=== PATIENT | male | born 1940 | race Caucasian/White ===

== ENCOUNTER → 2016-07-12 | Outpatient (CLI) | payer BC ==
[~2016-07-12] MED LIST: ACET-1138 PO; ALBU1AER9 INH; ASPEC325 PO; AZIT500T3 PO; ETHA1TAB8 PO; HYG/25 PO; IRBE-37 PO; PARO1TAB27 PO; RIFA150C15 PO; RXC5 PO
== END | disposition home or self-care (01) ==
LOC: C.LABPVFM 13:18
PROVIDERS: ATTEND Internal Medicine Critical Care Medicine
DX: R91.8 Other nonspecific abnormal finding of lung field (principal); A31.0 Pulmonary mycobacterial infection; Z79.899 Other long term (current) drug therapy

== ENCOUNTER → 2016-07-26 | Outpatient (CLI) | payer BC ==
[2016-07-26 17:13] LABS: ALT/SGPT 18 U/L (12-78); BLOOD UREA NITROGEN 19 mg/dl (7-18); BUN/CREATININE RATIO 16.1 (10-20); CARBON DIOXIDE 27 mmol/L (21-32); CHLORIDE 102 mmol/L (98-107); CHOLESTEROL 167 mg/dl (0-200); GLUCOSE 94 mg/dl (70-99); POTASSIUM 4.4 mmol/L (3.5-5.1); SODIUM 139 mmol/L (136-145)
[2016-07-26 17:23] LABS: ALB/GLOB RATIO 1.3 (0.9-2); ALKALINE PHOSPHATASE 98 U/L (45-117); AST/SGOT 13 U/L (15-37); CHOLESTEROL/HDL RATIO 2.3; HDL CHOLESTEROL 72 mg/dl; LDL CHOLESTEROL CALCULATED 70 mg/dl; TRIGLYCERIDES 124 mg/dl (0-150); VERY LOW DENSITY LIPOPROT CALC 25 mg/dl
[2016-07-27 07:27] LABS: ESTIMATED AVERAGE GLUCOSE 103 mg/dl; HA1C FLAG Normal (Normal)
--- NOTE | 2016-08-01 13:12 | CODING QUERY MEDICAL NECESSITY ---
SUPPORTING DIAGNOSIS NEEDED A supporting diagnosis is required for the test/procedure performed on this patient in order for us to be reimbursed by the patient's insurance. Please provide a supporting diagnosis for the following test/procedure listed below next to the test name along with your signature. *If there is no additional diagnosis for this patient that would support the following test/procedure please document that below next to the test/procedure. Test(s)/Procedure(s) that require a supporting diagnosis: * GLYCATED HEMOGLOBIN DIAGNOSIS: * DOS: 07/26/16 Provider Signature: Date: Thank you Citlaly [facility] Once completed, please kindly fax back to [phone] For questions please call [phone]
== END | disposition home or self-care (01) ==
LOC: C.LABPVFM 11:20
PROVIDERS: ATTEND Nurse Practitioner Family
DX: Z12.5 Encounter for screening for malignant neoplasm of prostate (principal); N40.1 Benign prostatic hyperplasia with lower urinary tract symptoms; J45.909 Unspecified asthma, uncomplicated; Z13.1 Encounter for screening for diabetes mellitus; F41.8 Other specified anxiety disorders; I10 Essential (primary) hypertension; Z13.220 Encounter for screening for lipoid disorders

== ENCOUNTER → 2016-09-26 | Outpatient (CLI) | payer BC ==
--- NOTE | 2016-09-26 16:17 | DIAGNOSTIC IMAGING REPORT ---
LEFT WRIST MIN 3 VIEWS ROUTINE CLINICAL HISTORY: Chronic left wrist pain COMPARISON: None. DISCUSSION: There are advanced arthritic changes present. There is fragmentation of the proximal carpal row. There is marked narrowing of the radial carpal joint. There is subchondral sclerotic change. There is a carpal instability pattern. There is dorsal soft tissue swelling. Several loose bodies are visualized. No acute fractures are evident. IMPRESSION: Advanced arthritic changes with marked joint space narrowing, subchondral sclerosis, carpal instability pattern, and bony fragmentation. Electronically signed by: Bill Greenberg M.D. 09/26/2016 4:15 PM Dictated Date/Time: 09/26/2016 4:14 PM
--- NOTE | 2016-09-26 16:17 | DIAGNOSTIC IMAGING REPORT ---
RIGHT WRIST MIN 3 VIEWS ROUTINE CLINICAL HISTORY: Chronic wrist pain. Polyarthritis. COMPARISON: Right wrist radiographs May 05, 2015. FINDINGS: There is near complete loss of the radiocarpal joint space. Stent osteophytosis is noted. Widening of the scapholunate interval is unchanged. There is minimal chondrocalcinosis within the TFCC. There is severe arthritis of the right first carpometacarpal joint. Several old ossific densities are noted overlying the dorsal aspect of the right wrist. These are unchanged exam of May 05, 2015. There is no acute fracture. No erosion is identified. IMPRESSION: 1. No significant change in severe arthritis of the right wrist when compared to exam of May 05, 2015, as described above. 2. No acute fracture. Electronically signed by: Vicente Ware M.D. 09/26/2016 4:15 PM Dictated Date/Time: 09/26/2016 4:13 PM
--- NOTE | 2016-09-26 16:18 | DIAGNOSTIC IMAGING REPORT ---
LEFT HAND MIN 3 VIEWS ROUTINE CLINICAL HISTORY: Left hand pain COMPARISON: Left wrist performed the same day DISCUSSION: There are advanced arthritic changes present within the wrist. Degenerative changes are also present within the hand but these are more mild. Changes are most severe at the level of the proximal to phalangeal joint of the index finger. There are no acute fractures. There are no erosive or destructive changes. IMPRESSION: Mild to moderate arthritic changes in the hand. Advanced arthritic changes within the wrist. No acute fractures. Electronically signed by: Bill Greenberg M.D. 09/26/2016 4:17 PM Dictated Date/Time: 09/26/2016 4:15 PM
--- NOTE | 2016-09-26 16:19 | DIAGNOSTIC IMAGING REPORT ---
RIGHT HAND MIN 3 VIEWS ROUTINE CLINICAL HISTORY: Right hand pain COMPARISON: Right wrist study performed the same day. DISCUSSION: There are advanced osteoarthritic changes involving the wrist. There are moderate erosive osteoarthritic changes involving the hand most severe at the level the proximal to phalangeal joint and extending, distal to phalangeal joints of the middle and little finger. No acute fractures are visualized. 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 Electronically signed by: Bill Greenberg M.D. 09/26/2016 4:18 PM Dictated Date/Time: 09/26/2016 4:17 PM
[2016-09-26 17:52] LABS: RHEUMATOID FACTOR < 10.0 U/mL (0-15); TOTAL IRON BINDING CAPACITY 295 mcg/dl (250-450); URIC ACID 7.2 mg/dl (2.6-7.2)
[2016-09-30 00:32] LABS: CYCLIC CITRULLINATED PEPT IGG <16 UNITS (<20); PARVOVIRUS IgG INDEX 7.7 (<0.9); PARVOVIRUS IgM INDEX 0.1 (<0.9)
== END | disposition home or self-care (01) ==
LOC: C.RAD1850 15:47
PROVIDERS: ATTEND Internal Medicine Rheumatology
DX: M13.0 Polyarthritis, unspecified (principal); M25.539 Pain in unspecified wrist

== ENCOUNTER → 2016-10-20 | Outpatient (CLI) | payer BC ==
[2016-10-20 12:48] LABS: ALKALINE PHOSPHATASE 82 U/L (45-117); ALT/SGPT 23 U/L (12-78); AST/SGOT 13 U/L (15-37)
== END | disposition home or self-care (01) ==
LOC: C.LABPVFM 10:17
PROVIDERS: ATTEND Internal Medicine Critical Care Medicine
DX: R91.8 Other nonspecific abnormal finding of lung field (principal); Z79.899 Other long term (current) drug therapy

== ENCOUNTER → 2016-11-16 | Outpatient (CLI) | payer BC ==
--- NOTE | 2016-11-16 14:20 | DIAGNOSTIC IMAGING REPORT ---
LEFT PELVIS/UNILATERAL HIP 2-3VIEWS CLINICAL HISTORY: LEG PAIN pain COMPARISON: None. DISCUSSION: Status post bilateral hip arthroplasties. Minimal degenerative change likely joints as well as low lumbar spine. No acute bony abnormality. No evidence for acetabular protrusion. There is no evidence for soft tissue swelling. IMPRESSION: No acute process. Total hip arthroplasties in good position. Electronically signed by: Reji Medina M.D. 11/16/2016 2:18 PM Dictated Date/Time: 11/16/2016 2:17 PM
--- NOTE | 2016-11-16 14:34 | DIAGNOSTIC IMAGING REPORT ---
LEFT FEMUR 2 VIEWS ROUTINE CLINICAL HISTORY: LEG PAIN pain COMPARISON: None. DISCUSSION: Patient is status post total hip arthroplasty. Good contact between prosthetic and underlying bone. No evidence for acetabular protrusion. There is no evidence for soft tissue swelling. IMPRESSION: Anatomic alignment status post total left hip arthroplasty Electronically signed by: Reji Medina M.D. 11/16/2016 2:33 PM Dictated Date/Time: 11/16/2016 2:33 PM
== END | disposition home or self-care (01) ==
LOC: C.RADPV 13:50
PROVIDERS: ATTEND Family Medicine
DX: M79.605 Pain in left leg (principal)

== ENCOUNTER 2017-07-05 11:45 | Emergency (ER) | payer BC ==
[~2017-07-05] VITALS: Ht 188 cm; Wt 77.4 kg
[2017-07-05 11:47] VITALS: TEMP 36.2; Ht 188 cm; Wt 77.4 kg
[2017-07-05] MEDS ORDERED: ASPIRIN 324 MG CHEW PO STA (12:29)
--- NOTE | 2017-07-05 12:32 | EMERGENCY ROOM VISIT NOTE ---
History Report prepared by Rona: Ken Edmondson Under the Supervision of: Dr. Bulmaro Suarez M.D. First contact with patient: 12:04 Chief Complaint: CHEST PAIN Stated Complaint: ANGINA,CHEST PAIN History of Present Illness The patient is a 77 year old male who presents to the Emergency Room with complaints of a persistent dull ache-like left-sided chest pain that began five days ago. He rates his pain a 2/10 in severity. He has a past medical history of a recent unilateral hip replacement on June 09, 2017. He also has a history of MAC. The patient states that nothing exacerbates his pain. He notes that he took an Aspirin last night which mildly helped his symptoms. He did not take any Aspirin today. He denies experiencing any fevers, cough, shortness of breath, nausea, vomiting, diarrhea, numbness, or any radiation of his pain. He is not currently on any blood thinners. He denies any recent long sedentary travel. He has a former history of cigarette smoking, but has not smoked in over 40+ years. Source of History: patient Onset: five days ago Position: chest (left) Symptom Intensity: 2/10 Quality: ache, dull Timing: constant Modifying Factors (Relieving): other (ASA) Associated Symptoms: No fevers, No cough, No SOB, No nausea, No vomiting, No diarrhea, No numbness Review of Systems See HPI for pertinent positives and negatives. A total of ten systems were reviewed and were otherwise negative. 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 Surgical Problems: (1) Hip replacement planned Family History No significant family history Social History Smoking Status: Former Smoker Smokeless Tobacco Use: No Drug Use: none Marital Status: single Housing Status: lives alone Occupation Status: retired Current/Historical Medications Scheduled Aspirin (Aspirin), 325 MG PO BID Chlorthalidone (Hygroton), 25 MG PO QAM Fluticasone Prop/Salmeterol (Advair Diskus 100/50 60 Dose), 2 PUFFS INH BID Irbesartan (Avapro), 150 MG PO QPM Paroxetine (Paxil), 30 MG PO QAM Allergies Coded Allergies: No Known Allergies (Verified , 06/09/16) Physical Exam Vital Signs Date Time Temp Pulse Resp B/P (MAP) Pulse Ox O2 Delivery O2 Flow Rate FiO2 07/05/17 15:11 59 17 124/74 96 Room Air 07/05/17 14:00 57 20 125/79 98 Room Air 07/05/17 13:29 58 18 136/91 99 Room Air 07/05/17 12:41 Room Air 07/05/17 12:30 62 20 115/71 98 Room Air 07/05/17 12:01 65 07/05/17 12:00 66 20 117/71 98 Room Air 07/05/17 11:47 36.2 80 16 121/72 98 Room Air Physical Exam GENERAL: Awake, alert, well-appearing, in no distress HENT: Normocephalic, atraumatic. Oropharynx unremarkable. EYES: Normal conjunctiva. Sclera non-icteric. NECK: Supple. No nuchal rigidity. FROM. No JVD. RESPIRATORY: Clear to auscultation. No wheezes, rales, or rhonchi present. CARDIAC: Regular rate, normal rhythm. Extremities warm and well perfused. Equal palpable radial pulses to the bilateral upper extremities. Equal palpable DP pulses bilaterally to the lower extremities. ABDOMEN: Soft, non-distended. No tenderness to palpation. No rebound or guarding. No masses. RECTAL: Deferred. MUSCULOSKELETAL: Chest examination reveals no tenderness. The back is symmetrical on inspection without obvious abnormality. There is no CVA tenderness to palpation. No joint edema. LOWER EXTREMITIES: Calves are equal size bilaterally and non-tender. No edema. No discoloration. NEURO: Normal sensorium. No sensory or motor deficits noted. No facial droop. No pronator drift. No dysarthria. SKIN: No rash or jaundice noted. Medical Decision & Procedures ER Provider Diagnostic Interpretation: Radiology results as stated below per my review and radiologist interpretation: (CHEST FOR PE) ANGIO WITH CT DOSE: 239.49 mGy.cm HISTORY: Chest pain dyspnea TECHNIQUE: Multiaxial CT images of the chest were performed following the intravenous administration of contrast to evaluate the pulmonary arteries. Maximal intensity projection images were also obtained. A dose lowering technique was utilized adhering to the principles of ALARA. COMPARISON STUDY: 10/06/2015 FINDINGS: Vascular is negative for aneurysm or dissection. Pulmonary arterial vasculature enhances appropriately. Chronic bibasilar interstitial fibrotic change is generally unaltered. Nodular pathology as well as pleural and parenchymal changes right pulmonary apex and right. Mediastinal region are unaltered. Pulmonary vasculature again enhances appropriately. IMPRESSION: No evidence of pulmonary embolus. Stable emphysematous, fibrotic, and nodular changes throughout the hemithoraces as has been described previously. The above report was generated using voice recognition software. It may contain grammatical, syntax or spelling errors. Electronically signed by: Reji Medina M.D. 07/05/2017 1:27 PM Dictated Date/Time: 07/05/2017 1:19 PM Laboratory Results 07/05/17 12:32 Red Blood Count 4.69, Mean Corpuscular Volume 90.6, Mean Corpuscular Hemoglobin 31.1, Mean Corpuscular Hemoglobin Concent 34.4, Mean Platelet Volume 9.0, Neutrophils (%) (Auto) 75.8, Lymphocytes (%) (Auto) 13.1, Monocytes (%) (Auto) 9.6, Eosinophils (%) (Auto) 1.1, Basophils (%) (Auto) 0.2, Neutrophils # (Auto) 4.29, Lymphocytes # (Auto) 0.74, Monocytes # (Auto) 0.54, Eosinophils # (Auto) 0.06, Basophils # (Auto) 0.01 07/05/17 12:32 Test 07/05/17 12:32 White Blood Count 5.65 K/uL (4.8-10.8) Red Blood Count 4.69 M/uL (4.7-6.1) Hemoglobin 14.6 g/dL (14.0-18.0) Hematocrit 42.5 % (42-52) Mean Corpuscular Volume 90.6 fL (80-100) Mean Corpuscular Hemoglobin 31.1 pg (25-34) Mean Corpuscular Hemoglobin Concent 34.4 g/dl (32-36) Platelet Count 282 K/uL (130-400) Mean Platelet Volume 9.0 fL (7.4-10.4) Neutrophils (%) (Auto) 75.8 % Lymphocytes (%) (Auto) 13.1 % Monocytes (%) (Auto) 9.6 % Eosinophils (%) (Auto) 1.1 % Basophils (%) (Auto) 0.2 % Neutrophils # (Auto) 4.29 K/uL (1.4-6.5) Lymphocytes # (Auto) 0.74 K/uL (1.2-3.4) Monocytes # (Auto) 0.54 K/uL (0.11-0.59) Eosinophils # (Auto) 0.06 K/uL (0-0.5) Basophils # (Auto) 0.01 K/uL (0-0.2) RDW Standard Deviation 50.1 fL (36.4-46.3) RDW Coefficient of Variation 15.1 % (11.5-14.5) Immature Granulocyte % (Auto) 0.2 % Immature Granulocyte # (Auto) 0.01 K/uL (0.00-0.02) Anion Gap 6.0 mmol/L (3-11) Est Creatinine Clear Calc Drug Dose 53.3 ml/min Estimated GFR () 61.3 Estimated GFR (Non- 52.9 BUN/Creatinine Ratio 17.5 (10-20) Calcium Level 9.3 mg/dl (8.5-10.1) Total Bilirubin 0.5 mg/dl (0.2-1) Direct Bilirubin 0.1 mg/dl (0-0.2) Aspartate Amino Transf (AST/SGOT) 14 U/L (15-37) Alanine Aminotransferase (ALT/SGPT) 20 U/L (12-78) Alkaline Phosphatase 82 U/L (45-117) Troponin I < 0.015 ng/ml (0-0.045) Total Protein 7.1 gm/dl (6.4-8.2) Albumin 3.8 gm/dl (3.4-5.0) Lipase 128 U/L (73-393) Laboratory results reviewed by me Medications Administered Medications (Trade) Dose Ordered Sig/Christopher Route Start Time Stop Time Status Last Admin Dose Admin Aspirin (Aspirin Chew) 324 mg NOW STAT PO 07/05/17 12:29 07/05/17 12:35 DC 07/05/17 12:46 324 MG ECG Indication: chest pain Rate (beats per minute): 66 Rhythm: normal sinus Findings: other (AL/QRS/QTC intervals within normal limits, no ST elevations or depressions) ED Course 1204: The patient was evaluated in room A12B. A complete history and physical exam was performed. 1400: Upon reevaluation, the patient's vital signs are stable. His CTA, labs including troponin, and ECG are all within normal limits. Aspirin 324 mg PO was given to the patient. The hospitalist will be consulted for further treatment and evaluation. 1423: The patient's vital signs remain to be stable. The patient was evaluated by Dr. Eli of the [facility] at this time who stated that he did not want to treat the patient further as an inpatient. He stated that he would follow up on the patient's serial troponin values and discuss the case with Cardiology to arrange outpatient follow up. I recommended that the patient be brought into the hospital for serial troponin values and continued cardiac monitoring, however, the hospitalist team would not amend to this. They arranged outpatient follow up tomorrow for the patient to have a cardiac stress test at 1300. The patient is comfortable with the plan of outpatient follow up. The patient will be discharged by the hospitalist team after they complete their evaluation. Medical Decision Labs imaging and EKG within normal limits. Aspirin was given on arrival.The patient was evaluated by Dr. Eli of the [facility] for observation in the hospital for chest pain rule out ACS including serial troponins and continuous cardiac telemetry monitoring. Fany stated that he did not want to treat the patient further as an inpatient. He stated that he would follow up on the patient's serial troponin values and discuss the case with Cardiology to arrange outpatient follow up. I recommended that the patient be brought into the hospital for serial troponin values and continued cardiac monitoring, however, the hospitalist team would not amend to this. They arranged outpatient follow up tomorrow for the patient to have a cardiac stress test at 1300. The patient is comfortable with the plan of outpatient follow up. The patient will be discharged by the hospitalist team after they complete their evaluation. Medication Reconcilliation Current Medication List: was personally reviewed by me Blood Pressure Screening Patient's blood pressure: Normal blood pressure Blood pressure disposition: Did not require urgent referral Consults Time Called: 1400 Consulting Physician: Dr. Eli - [facility] Returned Call: [phone] Please see the ED course for more information. Impression Primary Impression: Chest pain Scribe Attestation The scribe's documentation has been prepared under my direction and personally reviewed by me in its entirety. I confirm that the note above accurately reflects all work, treatment, procedures, and medical decision making performed by me. Departure Information Dispostion Being Evaluated By Hospitalist Referrals Lauren Cagle M.D. (PCP) Patient Instructions My [facility] Problem Qualifiers Primary Impression: Chest pain Chest pain type: unspecified Qualified Codes: R07.9 - Chest pain, unspecified
[2017-07-05] MEDS ORDERED: OPTIRAY 320 IV PRN (12:45)
[2017-07-05] MEDS ORDERED: ADVIN10/60 INH (12:50)
[2017-07-05 13:01] LABS: BASO % 0.2 %; BASO ABS # 0.01 K/uL (0-0.2); EOS % 1.1 %; EOS ABS # 0.06 K/uL (0-0.5); HEMATOCRIT 42.5 % (42-52); HEMOGLOBIN 14.6 g/dL (14.0-18.0); IG# 0.01 K/uL (0.00-0.02); LYMPH % 13.1 %; LYMPH ABS # 0.74 K/uL (1.2-3.4); MEAN CELL VOLUME 90.6 fL (80-100); MEAN CORPUSCULAR HEMOGLOBIN 31.1 pg (25-34); MEAN CORPUSCULAR HGB CONC 34.4 g/dl (32-36); MONO % 9.6 %; MONO ABS # 0.54 K/uL (0.11-0.59); NEUT % 75.8 %; NEUT ABS # 4.29 K/uL (1.4-6.5); PLATELET COUNT 282 K/uL (130-400); RED CELL DISTRIBUTION WIDTH CV 15.1 % (11.5-14.5); RED CELL DISTRIBUTION WIDTH SD 50.1 fL (36.4-46.3); WHITE BLOOD COUNT 5.65 K/uL (4.8-10.8)
[2017-07-05 13:10] LABS: ALBUMIN 3.8 gm/dl (3.4-5.0); ALT/SGPT 20 U/L (12-78); AST/SGOT 14 U/L (15-37); BLOOD UREA NITROGEN 23 mg/dl (7-18); CALCIUM 9.3 mg/dl (8.5-10.1); CARBON DIOXIDE 28 mmol/L (21-32); CREATININE 1.31 mg/dl (0.60-1.40); GLUCOSE 83 mg/dl (70-99); LIPASE 128 U/L (73-393); POTASSIUM 4.5 mmol/L (3.5-5.1); SODIUM 136 mmol/L (136-145)
[2017-07-05 13:15] LABS: ALKALINE PHOSPHATASE 82 U/L (45-117); TOTAL PROTEIN 7.1 gm/dl (6.4-8.2)
--- NOTE | 2017-07-05 13:28 | DIAGNOSTIC IMAGING REPORT ---
(CHEST FOR PE) ANGIO WITH CT DOSE: 239.49 mGy.cm HISTORY: Chest pain dyspnea TECHNIQUE: Multiaxial CT images of the chest were performed following the intravenous administration of contrast to evaluate the pulmonary arteries. Maximal intensity projection images were also obtained. A dose lowering technique was utilized adhering to the principles of ALARA. COMPARISON STUDY: 10/06/2015 FINDINGS: Vascular is negative for aneurysm or dissection. Pulmonary arterial vasculature enhances appropriately. Chronic bibasilar interstitial fibrotic change is generally unaltered. Nodular pathology as well as pleural and parenchymal changes right pulmonary apex and right. Mediastinal region are unaltered. Pulmonary vasculature again enhances appropriately. IMPRESSION: No evidence of pulmonary embolus. Stable emphysematous, fibrotic, and nodular changes throughout the hemithoraces as has been described previously. The above report was generated using voice recognition software. It may contain grammatical, syntax or spelling errors. Electronically signed by: Reji Medina M.D. 07/05/2017 1:27 PM Dictated Date/Time: 07/05/2017 1:19 PM
--- NOTE | 2017-07-05 15:10 | Medical Consult ---
Consultation Date of Consultation: Jul 05, 2017. Attending Physician: History of Present Illness 77 y/o M Hx BIBIANA, asthma - pt has had R lateral CP for 5 days. He describes the pain as dull, nonradiating. Denies SOB, N/V, diaphoresis or lightheadedness. The pain began when he was out hunting on a particularly cold day last week. It is slightly worse when he takes a deep breath. A CT chest was obtained by the ER attending due to concern for PE: Vascular is negative for aneurysm or dissection. Pulmonary arterial vasculature enhances appropriately. Chronic bibasilar interstitial fibrotic change is generally unaltered. Nodular pathology as well as pleural and parenchymal changes right pulmonary apex and right. Mediastinal region are unaltered. Past Medical/Surgical History 1) BIBIANA - pt had a lung resection and then was treated with antibiotics for 18 months terminating 06/11. He has chronic emphysematous changes on imaging. 2) Asthma 3) Osteoarthritis - b/l hip replacement 4) HTN Family History No significant family history Social History Quit smoking 1972 Smoking Status: Former Smoker Smokeless Tobacco Use: No Drug Use: none Marital Status: single Housing Status: lives alone Occupation Status: retired Allergies Coded Allergies: No Known Allergies (Verified , 06/09/16) Current Inpatient Medications Current Inpatient Medications Medications (Trade) Dose Ordered Sig/Christopher Route Start Time Stop Time Status Last Admin Dose Admin Ioversol (Optiray 320) 111 ml UD PRN IV 07/05/17 12:45 07/09/17 12:44 Review of Systems Constitutional: No fever, No chills, No sweats Eyes: No worsening of vision ENT: No hearing loss, No unusual epistaxis, No nasal symptoms Respiratory: + cough (Chronic), + sputum (chronic), No wheezing, No shortness of breath, No dyspnea on exertion, No dyspnea at rest Cardiovascular: + chest pain (as above) Abdomen: No pain, No nausea, No vomiting Musculoskeletal: No joint pain Genitourinary - Male: No hematuria, No dysuria Neurologic: No memory loss, No paralysis, No weakness Psychiatric: No depression symptoms Endocrine: No fatigue, No excessive thirst Hematologic / Lymphatic: No abnormal bleeding/bruising Integumentary: No rash Allergic / Immunologic: No environmental allergies Physical Exam Date Time Temp Pulse Resp B/P (MAP) Pulse Ox O2 Delivery O2 Flow Rate FiO2 07/05/17 14:00 57 20 125/79 98 Room Air 07/05/17 13:29 58 18 136/91 99 Room Air 07/05/17 12:41 Room Air 07/05/17 12:30 62 20 115/71 98 Room Air 07/05/17 12:01 65 07/05/17 12:00 66 20 117/71 98 Room Air 07/05/17 11:47 36.2 80 16 121/72 98 Room Air General Appearance: WD/WN, no apparent distress Head: normocephalic Eyes: normal inspection ENT: normal ENT inspection, hearing grossly normal Neck: supple, no JVD Respiratory/Chest: chest non-tender, lungs clear, normal breath sounds Cardiovascular: regular rate, rhythm, no edema, no gallop Abdomen/GI: normal bowel sounds, non tender, soft Back: normal inspection, no CVA tenderness Extremities/Musculoskelatal: normal inspection, no calf tenderness, normal capillary refill 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, no motor/sensory deficits, alert, oriented x 3 Skin: normal color, warm/dry, no rash Laboratory Results Last 24 Hours Test 07/05/17 12:32 White Blood Count 5.65 K/uL Red Blood Count 4.69 M/uL Hemoglobin 14.6 g/dL Hematocrit 42.5 % Mean Corpuscular Volume 90.6 fL Mean Corpuscular Hemoglobin 31.1 pg Mean Corpuscular Hemoglobin Concent 34.4 g/dl Platelet Count 282 K/uL Mean Platelet Volume 9.0 fL Neutrophils (%) (Auto) 75.8 % Lymphocytes (%) (Auto) 13.1 % Monocytes (%) (Auto) 9.6 % Eosinophils (%) (Auto) 1.1 % Basophils (%) (Auto) 0.2 % Neutrophils # (Auto) 4.29 K/uL Lymphocytes # (Auto) 0.74 K/uL Monocytes # (Auto) 0.54 K/uL Eosinophils # (Auto) 0.06 K/uL Basophils # (Auto) 0.01 K/uL RDW Standard Deviation 50.1 fL RDW Coefficient of Variation 15.1 % Immature Granulocyte % (Auto) 0.2 % Immature Granulocyte # (Auto) 0.01 K/uL Sodium Level 136 mmol/L Potassium Level 4.5 mmol/L Chloride Level 102 mmol/L Carbon Dioxide Level 28 mmol/L Anion Gap 6.0 mmol/L Blood Urea Nitrogen 23 mg/dl Creatinine 1.31 mg/dl Est Creatinine Clear Calc Drug Dose 53.3 ml/min Estimated GFR () 61.3 Estimated GFR (Non- 52.9 BUN/Creatinine Ratio 17.5 Random Glucose 83 mg/dl Calcium Level 9.3 mg/dl Total Bilirubin 0.5 mg/dl Direct Bilirubin 0.1 mg/dl Aspartate Amino Transf (AST/SGOT) 14 U/L Alanine Aminotransferase (ALT/SGPT) 20 U/L Alkaline Phosphatase 82 U/L Troponin I < 0.015 ng/ml Total Protein 7.1 gm/dl Albumin 3.8 gm/dl Lipase 128 U/L Assessment & Plan 77 y/o M Hx BIBIANA, asthma - pt has had R lateral CP for 5 days. He describes the pain as dull, nonradiating. Denies SOB, N/V, diaphoresis or lightheadedness. The pain began when he was out hunting on a particularly cold day last week. It is slightly worse when he takes a deep breath. 1) Chest pain - atypical - no EKG changes are present - trop is WNL despite 5 days of persistent pain. We have contacted the cardiology office and they have stated that the pt can be seen tomorrow afternoon for f/u. He was provided with ASA and informed that he should return to the hospital if he experiences worsening of pain, SOB, N/V, sweating or pain in his arm or jaw. 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 3) HTN - cont ARB Total time for this consult including review of labs, meds, imaging, records - discussion with pt, [facility]er office and ER attending - 38 min
[2017-07-05 15:11] VITALS: BP 124/74; PULSE 59; O2SAT 96
[2017-07-06 13:08] LABS: ISTAT CREATININE 1.3 mg/dl (0.6-1.3); ISTAT IONIZED CALCIUM 1.17 mmol/l (1.12-1.32); ISTAT POTASSIUM 4.6 mEq/L (3.3-5.0)
== END 2017-07-05 15:13 | disposition home or self-care (01) ==
LOC: C.EDB 11:46 → C.EDA 15:13
DX: R07.9 Chest pain, unspecified (principal); J45.909 Unspecified asthma, uncomplicated; I10 Essential (primary) hypertension; Z90.2 Acquired absence of lung [part of]; Z86.19 Personal history of other infectious and parasitic diseases; Z96.643 Presence of artificial hip joint, bilateral; Z87.891 Personal history of nicotine dependence; Z79.82 Long term (current) use of aspirin; Z79.51 Long term (current) use of inhaled steroids

== ENCOUNTER → 2017-10-26 | Outpatient (CLI) | payer BC ==
[~2017-10-26] MED LIST changes: -ACET-1138 PO; +ADVIN10/60 INH; -ALBU1AER9 INH; -AZIT500T3 PO; -ETHA1TAB8 PO; -RIFA150C15 PO; -RXC5 PO
[2017-10-26 13:56] LABS: ALBUMIN 3.6 gm/dl (3.4-5.0); ALT/SGPT 25 U/L (12-78); AST/SGOT 18 U/L (15-37); BLOOD UREA NITROGEN 26 mg/dl (7-18); CARBON DIOXIDE 27 mmol/L (21-32); CHOLESTEROL 128 mg/dl (0-200); CREATININE 1.19 mg/dl (0.60-1.40); GLUCOSE 94 mg/dl (70-99); POTASSIUM 4.2 mmol/L (3.5-5.1); SODIUM 139 mmol/L (136-145)
[2017-10-26 13:59] LABS: ALKALINE PHOSPHATASE 83 U/L (45-117); LDL CHOLESTEROL CALCULATED 42 mg/dl; TOTAL PROTEIN 6.8 gm/dl (6.4-8.2)
== END | disposition home or self-care (01) ==
LOC: C.LABPVFM 10-20 13:04
PROVIDERS: ATTEND Family Medicine
DX: I10 Essential (primary) hypertension (principal); E78.5 Hyperlipidemia, unspecified; A31.0 Pulmonary mycobacterial infection